=== PATIENT | female | born 1990 | race Two or more races ===

== ENCOUNTER 2024-05-25 00:23 | Emergency (ER) | payer OTHER ==
[~2024-05-25] VITALS: Ht 157.5 cm; Wt 63.0 kg
[2024-05-25 00:23] VITALS: BP 123/78; PULSE 70; RESP 18; TEMP 97.5; O2SAT 96
--- NOTE | 2024-05-25 01:21 | ED.PDOC ---
Back pain HPI HPI Comments 33-year-old female presents to ER with complaints of back pain x1 day. Patient reports she started experiencing 8/10 right lower lumbar back pain with radiation down right posterior leg at 10:00 p.m. 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 Denies any trauma/falls. Denies use of medications for current symptoms. Patient states that she is nine weeks , and has followed up with a provider with regards to current , denying any current related symptoms. Denies fever, nausea/vomiting, numbness/tingling, shortness of breath, chest pain, abdominal/pelvic pain or vaginal bleeding/changes in urination, changes in BM or any further symptoms/complaints Chief Complaint: Back Pain Time Seen by MD: 00:58 Primary Care Provider: UNKNOWN Reviewed Notes: Nurses Notes, Medications, Allergies Allergies: Coded Allergies: NO KNOWN ALLERGIES (Unverified , 05/25/24) Information Source: Patient Mode of Arrival: Ambulatory Past Medical History PAST MEDICAL HISTORY: Denies Surgical History: Denies all surgeries Family History Family History: Unknown Social History Smoker: Non-Smoker Alcohol: Denies ETOH Use Drugs: Denies Drug Use Lives In: Home Constitutional: denies: chills, diaphoresis, fatigue, fever, malaise, sweats, weakness, others EENTM: denies: blurred vision, double vision, ear bleeding, ear discharge, ear drainage, ear pain, ear ringing, eye pain, eye redness, hearing loss, mouth pain, mouth swelling, nasal discharge, nose bleeding, nose congestion, nose pain, photophobia, tearing, throat pain, throat swelling, voice changes, others Respiratory: denies: cough, hemoptysis, orthopnea, SOB at rest, shortness of breath, SOB with excertion, stridor, wheezing, others Cardiovascular: denies: chest pain, dizzy spells, diaphoresis, Dyspnea on exertion, edema, irregular heart beat, left arm pain, lightheadedness, palpit ations, PND, syncope, others Gastrointestinal: denies: abdomen distended, abdominal pain, blood streaked b owels, constipated, diarrhea, dysphagia, difficulty swallowing, hematemesis, melena, nausea, poor appetite, poor fluid intake, rectal bleeding, rectal pain, vomiting, others Genitourinary: reports: others ( STATED IN HPI) Neurological: denies: dizziness, fainting, headache, left sided numbness, left sided weakness, numbness, paresthesia, pre-existing deficit, right sided numbness, right sided weakness, seizure, speech problems, tingling, tremors, weakness, others Musculoskeletal: reports: others ( STATED IN HPI) Integumetry: denies: bruises, change in color, change in hair/nails, dryness, laceration, lesions, lumps, rash, wounds, others Allergic/Immunocompromised: denies: Difficulty Healing, Frequent Infections, Hives, Itching, others Hematologic/Lymphatic: denies: anemia, blood clots, easy bleeding, easy bruising, swollen glands, others Endocrine: denies: excessive hunger, excessive sweating, excessive thirst, excessive urination, flushing, intolerance to cold, intolerance to heat, unexplained weight gain, unexplained weight loss, others Psychiatric: denies: anxiety, bipolar disorder, depression, hopeless, panic disorder, schizophrenia, sleepless, suicidal, others Physical Exam General Appearance: No Apparent Distress HEENT: PERRL/EOMI Neck: Full Range of Motion, Non-Tender, Normal Respiratory: Chest Non-Tender, Lungs Clear, No Accessory Muscle Use, No Respiratory Distress, Normal Breath Sounds Cardiovascular: No Murmur, No Gallop, Regular Rate/Rhythm Breast Exam: Deferred Gastrointestinal: Non Tender (NO TTP TO ABDOMEN/PELVIC REGION NOTED), No Pulsatile Mass, Soft Genitalia: Deferred Pelvic: Deferred Rectal: Deferred Extremities: Normal capillary refill, Normal range of motion Musculoskeletal : Extremity Location: Back (TTP TO RIGHT LOWER LUMBAR PARASPINALS NOTED. NO BONY TENDERNESS NOTED. NO SKIN CHANGES NOTED. 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 Was a procedure done?: No Sedation Sedation?: No Back Pain Differential Dx Differential Diagnosis: AAA, , Fracture, Other (NEUROVASCULAR INJURY) X-Ray, Labs, Meds, VS Vital Signs Date Time Temp Pulse Resp B/P (MAP) Pulse Ox O2 Delivery O2 Flow Rate FiO2 05/25/24 01:16 Room Air* 0 21 05/25/24 00:23 97.5 70 18 123/78 (93) 96 97.5 PATIENT NEUROVASCULARLY INTACT AND IN NO DISTRESS DURING ER VISIT/PRIOR TO DISCHARGE PATIENT REFUSED TYLENOL IN ER AND REFUSED TYLENOL PRESCRIPTION ADVISED ON REST/ NO STRENUOUS ACTIVITY AND ALTERNATE HEAT ON/OFF NEEDED FOR PAIN WORK COMP PAPERWORK FILLED OUT ADVISED TO FOLLOW UP WITH PCP, WORK COMP PCP AND OBGYN IN 1-2 DAYS PATIENT VERBALIZED UNDERSTANDING AND AGREEABLE WITH CURRENT PLAN OF CARE ADVISED TO RETURN TO ER IMMEDIATELY IF SYMPTOMS WORSEN Time of 1ST Reevaluation: 01:20 Reevaluation 1ST: N/A Patient Education/Counseling: Diagnosis, Treatment, Prognosis, Need For Follow Up Family Education/Counseling: No Family Present Departure 1 Departure Time of Disposition: 01:24 Impression: Primary Impression: Lumbar strain Qualified Codes: S39.012A - Strain of muscle, fascia and tendon of lower back, initial encounter Additional Impression: First trimester Disposition: 01 HOME / SELF CARE / HOMELESS Condition: Stable Discharged With: Self Critical Care Note Critical Care Time?: No Stability Stability form required: No Heart Score Heart Score: Heart Score Response (Comments) Value History N/A 0 EKG N/A 0 Age N/A 0 Risk Factors N/A 0 Troponin N/A 0 Total 0 PEPPER NASSAR May 25, 2024 01:21
== END 2024-05-25 01:36 | disposition home or self-care (01) ==
LOC: ER 00:23
DX: O9A.211 Injury, poisoning and certain other consequences of external causes complicating pregnancy, first trimester (principal); S39.012A Strain of muscle, fascia and tendon of lower back, initial encounter; Z3A.09 9 weeks gestation of pregnancy; X58.XXXA Exposure to other specified factors, initial encounter; Y93.89 Activity, other specified; Y92.89 Other specified places as the place of occurrence of the external cause; Y99.8 Other external cause status